=== PATIENT | male | born 1940 | race Caucasian/White ===

== ENCOUNTER 2018-09-17 17:32 | Emergency (ER) | payer MEDICARE, BC ==
[2018-09-17 17:48] VITALS: BP 173/82
--- NOTE | 2018-09-17 18:19 | EDM.PDOC ---
ED HPI GENERAL MEDICAL PROBLEM - General Chief Complaint: Cardiovascular Problem Stated Complaint: FORGET TO TAKE MEDICATION (BP HIGH) Time Seen by Provider: 09/17/18 17:49 Source of Information: Reports: Patient, RN Notes Reviewed - History of Present Illness INITIAL COMMENTS - FREE TEXT/NARRATIVE: 77 year old male with high blood pressure at home, forgot to take a medication last evening a day ago. Was feeling mildly abnormal a short time ago, checked his BP at home, was, 206 systolic. Now that he is here BP is only very mildly elevated, has not unusal sx at this time. No prior hx of Htn, has never taken medication for Htn. He had rotator cuff surgery about 4 to 5 days ago. Taking pain medication, doing OK with that. - Related Data Allergies Allergy/AdvReac Type Severity Reaction Status Date / Time Penicillins Allergy Severe Rash Verified 09/17/18 17:48 Home Meds: Home Meds Acetaminophen/oxyCODONE [Percocet 325-5 MG] 1 - 2 tab PO Q4H PRN #20 tab [Rx] Past Medical History Cardiovascular History: Reports: High Cholesterol, Hypertension, [place], PTCA Genitourinary History: Reports: BPH - Past Surgical History Musculoskeletal Surgical History: Reports: Hip Replacement, Knee Replacement Social & Family History - Caffeine Use Caffeine Use: Reports: None ED ROS GENERAL - Review of Systems Review Of Systems: See Below Constitutional: Denies: Fever, Chills, Diaphoresis HEENT: Denies: Throat Pain, Vertigo, Vision Change Respiratory: Denies: Shortness of Breath Cardiovascular: Denies: Chest Pain GI/Abdominal: Denies: Abdominal Pain, Nausea, Vomiting Musculoskeletal: Denies: Neck Pain, Shoulder Pain, Arm Pain, Back Pain Skin: Reports: No Symptoms Neurological: Denies: Dizziness, Headache, Numbness, Tingling, Trouble Speaking , Difficulty Walking, Weakness ED EXAM, GENERAL - Physical Exam Exam: See Below General Appearance: Alert, No Apparent Distress Eye Exam: Bilateral Eye: PERRL Throat/Mouth: Normal Inspection Head: Atraumatic. No: Facial Swelling Neck: Supple, Full Range of Motion Respiratory/Chest: No Respiratory Distress, Lungs Clear, Normal Breath Sounds Cardiovascular: Regular Rate, Rhythm GI/Abdominal: Soft, Non-Tender Extremities: Other (R shoulder in a sling, incission appear to be healing fine) . No: Pedal Edema, Leg Pain Neurological: Alert, Oriented, No Motor/Sensory Deficits Skin Exam: Warm, Dry, Normal Color Course - Vital Signs Last Recorded V/S: Last Vital Signs Temp 97.3 F 09/17/18 17:44 Pulse 56 L 09/17/18 17:44 Resp 16 09/17/18 17:44 BP 173/82 H 09/17/18 17:44 Pulse Ox 96 09/17/18 17:44 Departure - Departure Time of Disposition: 18:19 Disposition: Home, Self-Care 01 Condition: Fair Clinical Impression: Hypertension Qualifiers: Hypertension type: essential hypertension Qualified Code(s): I10 - Essential ( primary) hypertension Instructions: Hypertension Referrals: Manpreet Murray MD [Primary Care Provider] - Forms: ED Department Discharge Additional Instructions: your blood pressures here in the ED are safe, call or return to ED if you have more than one reading 20 minutes apart greater than 210/120. Call as needed for any other questions or concerns. Continue to check blood pressures once or twice daily and keep a record of those readings. Follow up clinic in about 6 to 7 days for recheck. Bring log of BP reading with you to clinic.
== END 2018-09-17 18:40 | disposition home or self-care (01) ==
LOC: JD.ED 17:32
DX: I10 Essential (primary) hypertension (principal); Z88.0 Allergy status to penicillin
CPT/HCPCS: 99282; 99283

== ENCOUNTER 2019-12-21 07:04 | Emergency (ER) | payer MEDICARE, BC ==
[2019-12-21 07:16] VITALS: BP 160/69; PULSE 75
--- NOTE | 2019-12-21 07:37 | EDM.PDOC ---
ED HPI GENERAL MEDICAL PROBLEM - General Chief Complaint: Abdominal Pain Stated Complaint: STOMACH PAIN Time Seen by Provider: 12/21/19 07:37 Source of Information: Reports: Patient History Limitations: Reports: No Limitations - History of Present Illness INITIAL COMMENTS - FREE TEXT/NARRATIVE: 79-year-old male presents to the ED for evaluation of abdominal pain. He states he has been up since 0130 hrs. this morning with diffuse periumbilical upper abdominal pain. Describes it as a deep aching pain with intermittent colicky component. States he has been having some loose stools. He has been having problems with abdominal pain for about 6 weeks. He did see week and had an ultrasound of his gallbladder liver and a CT of the abdomen and other blood tests as well as stools for culture and sensitivity. The results are not known to him as he has an appointment for follow-up tomorrow. States the pain got much worse overnight than its in the past. No associated nausea or vomiting. He has not been eating as much as of late as he has a sense of early satiety. Believes he probably losing a little bit of weight but some of this is intentional. He is not noticed any blood in the stool. And it tends to be loose and slightly yellow in color. Pain does not radiate through to the back. Patient has no history of abdominal surgery. Onset: Today Onset Date: 12/21/19 Onset Time: 01:30 Duration: Hour(s): (Recurrent abdominal pain off and on for the last 6 weeks however.), Constant Location: Reports: Abdomen (Periumbilical and upper abdominal pain) Quality: Reports: Ache, Sharp, Stabbing, Other Severity: Moderate (Colicky component to the pain 6 out of 10) Improves with: Reports: None Worsens with: Reports: None Context: Denies: Activity, Exercise, Lifting, Sick Contact, Trauma, Other Associated Symptoms: Reports: Loss of Appetite, Malaise, Other. Denies: No Other Symptoms, Confusion, Chest Pain, Cough, cough w sputum, Diaphoresis, Fever /Chills, Headaches, Nausea/Vomiting, Rash, Seizure, Shortness of Breath, Syncope Treatments ACCOUNT SUPPORT REP: Reports: Other (see below) (Does not take anything for the pain. ) Abdomen Pain Score (Numeric/FACES): 6 - Related Data Allergies Allergy/AdvReac Type Severity Reaction Status Date / Time Penicillins Allergy Severe Rash Verified 12/21/19 07:16 Home Meds: Home Meds Acetaminophen [Tylenol] 650 mg PO DAILY 12/21/19 [History] [facility]. 1 tab PO DAILY 12/21/19 [History] Isosorbide Mononitrate [Imdur] 15 mg PO DAILY 12/21/19 [History] Levothyroxine 0.5 tab PO DAILY 12/21/19 [History] Metoprolol Succinate 0.5 tab PO DAILY 12/21/19 [History] Rivaroxaban [Xarelto] 20 mg PO DAILY 12/21/19 [History] Rosuvastatin [Crestor] 40 mg PO BEDTIME 12/21/19 [History] Ubidecarenone [Co Q-10] 400 mg PO DAILY 12/21/19 [History] Past Medical History HEENT History: Reports: Impaired Vision Cardiovascular History: Reports: High Cholesterol, Hypertension, [place] (When he 16. ), PTCA, Stents (Had 1 stent placed in about 2013.) Genitourinary History: Reports: BPH Endocrine/Metabolic History: Reports: Hypothyroidism Dermatologic History: Reports: Benign Melanoma - Past Surgical History Male Surgical History: Reports: Other (See Below) Other Male Surgeries/Procedures: "resume treatment" Musculoskeletal Surgical History: Reports: Hip Replacement, Knee Replacement, Other (See Below) Other Musculoskeletal Surgeries/Procedures:: rotator cuff surgery x2 Social & Family History - Tobacco Use Smoking Status *Q: Never Smoker Second Hand Smoke Exposure: No - Caffeine Use Caffeine Use: Reports: Coffee - Recreational Drug Use Recreational Drug Use: No - Living Situation & Occupation Living situation: Reports: Occupation: Retired [employer] GENERAL - Review of Systems Review Of Systems: See Below Constitutional: Reports: Malaise, Weakness, Fatigue, Decreased Appetite (Early satiety), Weight Loss. Denies: Fever, Chills HEENT: Reports: No Symptoms Respiratory: Reports: Shortness of Breath. Denies: Wheezing, Pleuritic Chest Pain, Cough, Sputum Cardiovascular: Reports: Blood Pressure Problem. Denies: Chest Pain, Claudication, Dyspnea on Exertion, Edema, Lightheadedness, Orthopnea GI/Abdominal: Reports: Abdominal Pain (See history of present illness), Diarrhea. Denies: Distension, Hematemesis (Patient will loose yellow stools without blood), Hematochezia, Nausea, Vomiting : Reports: Frequency, Other (Sure you almost every hour.) Musculoskeletal: Reports: No Symptoms Skin: Reports: No Symptoms Neurological: Reports: No Symptoms Psychiatric: Reports: No Symptoms Hematologic/Lymphatic: Reports: No Symptoms Immunologic: Reports: No Symptoms ED EXAM, GI/ABD - Physical Exam Exam: See Below Exam Limited By: No Limitations General Appearance: Alert, WD/WN, Mild Distress, Other (Temperature is 36.2 with a pulse of 75. BP 160/69. Respiratory 16 with O2 sats of 96% on room air) Eyes: Bilateral: Normal Appearance Throat/Mouth: Normal Inspection, Normal Lips, Normal Teeth, Normal Oropharynx Head: Atraumatic, Normocephalic Neck: Normal Inspection, Supple, Non-Tender, Full Range of Motion. No: Carotid Bruit, Lymphadenopathy (L), Lymphadenopathy (R) Respiratory/Chest: No Respiratory Distress, Lungs Clear, Normal Breath Sounds, No Accessory Muscle Use, Chest Non-Tender Cardiovascular: Normal Peripheral Pulses, Regular Rate, Rhythm, No Edema, No Gallop, No Rub, Systolic Murmur (Pansystolic ejection murmur heard best at the left lower sternal border graded 1 out of 6.) GI/Abdominal Exam: Soft, Distended (Sounds are actually fairly quiesced sent in all 4 quadrants. Distended throughout all 4 quadrants and slight Lemuel tympanitic to percussion.), Tender (Tenderness along the costal margin and I can feel the edge of his liver 1 fingerbreadth below the costal margin with deep breathing.), Abnormal Bowel Sounds, Other. No: Guarding, Rigid, Rebound, Splenomegaly (Male) Exam: No Hernia (No umbilical hernia appreciated. No inguinal hernia. ) Back Exam: Normal Inspection, Full Range of Motion. No: CVA Tenderness (L), CVA Tenderness (R) Extremities: Normal Inspection, Normal Range of Motion, Non-Tender Neurological: Alert, Oriented, CN II-XII Intact, Normal Cognition Psychiatric: Anxious Skin Exam: Warm, Dry, Intact, Normal Color, No Rash Course - Vital Signs Last Recorded V/S: Last Vital Signs Temp 36.2 C 12/21/19 07:12 Pulse 75 12/21/19 07:12 Resp 16 12/21/19 07:12 BP 160/69 H 12/21/19 07:12 Pulse Ox 96 12/21/19 07:12 - Orders/Labs/Meds Orders: Active Orders 24 hr Category Date Time Status Bladder Scan [RC] ASDIRECTED Care 12/21/19 07:52 Active URINALYSIS W/MICROSCOPIC [UA W/MICROSCOPIC] [URIN] Stat Lab 12/21/19 07:46 Ordered Dextrose 5%-0.9% NaCl [Dextrose 5%-Normal Saline] 1,000 Med 12/21/19 07:45 Active ml IV ASDIRECTED Medication Orders Dextrose/Sodium Chloride (Dextrose 5%-Normal Saline) 1,000 mls @ 250 mls/hr IV ASDIRECTED GARCÍA Last Admin: 12/21/19 08:08 Dose: 250 mls/hr Labs: Laboratory Tests 12/21/19 12/21/19 Range/Units 08:00 08:00 WBC 10.05 H (4.23-9.07) K/mm3 RBC 4.97 (4.63-6.08) M/mm3 Hgb 14.6 (13.7-17.5) gm/dl Hct 45.3 (40.1-51.0) % MCV 91.1 (79.0-92.2) fl MCH 29.4 (25.7-32.2) pg MCHC 32.2 (32.2-35.5) g/dl RDW Std Deviation 46.7 H (35.1-43.9) fL Plt Count 167 (163-337) K/mm3 MPV 11.4 (9.4-12.3) fl Neut % (Auto) 84.6 H (34.0-67.9) % Lymph % (Auto) 6.5 L (21.8-53.1) % Storey % (Auto) 8.4 (5.3-12.2) % Eos % (Auto) 0.2 L (0.8-7.0) Baso % (Auto) 0.1 (0.1-1.2) % Neut # (Auto) 8.51 H (1.78-5.38) K/mm3 Lymph # (Auto) 0.65 L (1.32-3.57) K/mm3 Storey # (Auto) 0.84 H (0.30-0.82) K/mm3 Eos # (Auto) 0.02 L (0.04-0.54) K/mm3 Baso # (Auto) 0.01 (0.01-0.08) K/mm3 Manual Slide Review Abnormal smear Sodium 140 (136-145) mEq/L Potassium 3.6 (3.5-5.1) mEq/L Chloride 106 (98-107) mEq/L Carbon Dioxide 25 (21-32) mEq/L Anion Gap 12.6 (5-15) BUN 17 (7-18) mg/dL Creatinine 0.8 (0.7-1.3) mg/dL Est Cr Clr Drug Dosing 79.84 mL/min Estimated GFR (MDRD) > 60 (>60) mL/min BUN/Creatinine Ratio 21.3 H (14-18) Glucose 126 H (83-115) mg/dL Calcium 9.4 (8.5-10.1) mg/dL Magnesium 1.7 L (1.8-2.4) mg/dl Total Bilirubin 1.4 H (0.2-1.0) mg/dL GGT 744 H (15-85) U/L AST 214 H (15-37) U/L ALT 167 H (16-63) U/L Alkaline Phosphatase 303 H (46-116) U/L C-Reactive Protein 10.1 H* (<1.0) mg/dL Total Protein 6.4 (6.4-8.2) g/dl Albumin 2.8 L (3.4-5.0) g/dl Globulin 3.6 gm/dL Albumin/Globulin Ratio 0.8 L (1-2) Lipase 80 (73-393) U/L Meds: Medications Generic Name Dose Route Start Last Admin Trade Name Freq PRN Reason Stop Dose Admin Dextrose/Sodium Chloride 1,000 mls @ 250 mls/hr 12/21/19 07:45 12/21/19 08:08 Dextrose 5%-Normal Saline IV 250 mls/hr ASDIRECTED GARCÍA Administration Discontinued Medications Generic Name Dose Route Start Last Admin Trade Name Freq PRN Reason Stop Dose Admin Hydromorphone HCl 0.5 mg 12/21/19 07:45 12/21/19 08:11 Dilaudid IVPUSH 12/21/19 07:46 0.5 mg ONETIME ONE Administration Metoclopramide HCl 7.5 mg 12/21/19 07:45 12/21/19 08:11 Reglan IVPUSH 12/21/19 07:46 7.5 mg ONETIME ONE Administration - Radiology Interpretation Free Text/Narrative:: 79-year-old male presents to the ED for evaluation of diffuse periumbilical upper abdominal pain persistent since 0130 hrs. this morning. He since been experiencing intermittent abdominal pain for the last 6 weeks and did have investigations carried out last week with ultrasound of his gallbladder and liver and a CT of the abdomen as well as a stool for culture and sensitivity and lab work. He is to follow-up with clinic tomorrow for the results. Pain is listed as 5-6 out of 10. On examination vital signs are normal. Chest is clear bowel sounds are few and far between. Mildly diffuse Lemuel tympanitic to percussion. Slight tenderness along the right costal margin without a positive Cardona sign. Slight tenderness in the epigastrium. He does not drink alcohol. No abdominal hernias appreciated. Plan KUB to be done. Routine lab work. IV D5 normal saline at 250 mils per hour. Given Dilaudid 0.5 mg IV with Reglan 7.5 mg IV for pain and nausea relief. Will have a bladder scan done after he voids as he claims he has nocturia almost hourly during the night due to BPH. Medically I did not feel that I could palpate a urinary bladder. - Re-Assessments/Exams Free Text/Narrative Re-Assessment/Exam: 12/21/19 08:25 KUB has been performed. Clinically does not appear to have some hepatomegaly on KUB. There are scattered pockets of air throughout the small bowel and large bowel. No signs of bowel obstruction. No air-fluid levels. The slightly prominent loops of small bowel may represent a mild ileus. No increased stool in the colon either. 12/21/19 08:57 Chemistry shows a sodium of 140 potassium 3.6. Chloride 106 with a bicarb of 25. Anion gap is 12.6. BUN is 17 with a creatinine of 0.8. GFR is greater than 60. Glucose is 126 with a calcium of 9.4. Magnesium slightly low at 1.7. Total bilirubin is mildly elevated at 1.4. GGT is 744 with a AST of 214. ALT is 167 and alk phos days is 303. RP is 10.1. Total protein is 6.4 with an albumin fraction of 2.8 globulin is 3.6. Lipase is 80. Labs definitely suggest that there is a problem with mild biliary tree obstruction with an elevated GGT and slightly elevated bilirubin and alk phosphatase. He has had a recent CT of the abdomen and percent of his liver within the last week but I am not privy to these results as they were done through the [facility] system. I discussed the findings with the patient and he does appear to have a component of biliary tree obstruction either from stone, sludge, obstruction from pancreatic head. His appointment is with 0800 hrs. tomorrow morning. His pain is much improved with the IV Dilaudid given in the ED. He has tramadol tablets at home that he took after prostate surgery which work well for him. Advised to use these for pain management until he can follow-up with Dr.Rathgaber painter. Depending on the findings of the CT and the liver ultrasound he may will need MR i.e. ERCP or follow-up with gastroenterology for ERCP to establish what is causing obstruction of his biliary tree. Departure - Departure Time of Disposition: 09:13 Disposition: Home, Self-Care 01 Condition: Fair Clinical Impression: Abdominal pain Qualifiers: Abdominal location: right upper quadrant Qualified Code(s): R10.11 - Right upper quadrant pain - Discharge Information *PRESCRIPTION DRUG MONITORING PROGRAM REVIEWED*: Not Applicable *COPY OF PRESCRIPTION DRUG MONITORING REPORT IN PATIENT TERRENCE: Not Applicable Instructions: Abdominal Pain, Adult Referrals: Manpreet Murray MD [Primary Care Provider] - Forms: ED Department Discharge Additional Instructions: Evaluation in the emergency room today in regards to diffuse upper abdominal pain that became quite severe around 0130 hrs. this morning. As you indicates she been battling with this discomfort quite badly for the last 10 days. As you think back it started to feel more distended and gaseous around October 04. Lab tests done today do reveal some degree of biliary tree obstruction. This means that the common bile duct that drains the liver and the gallbladder is showing some signs of enzyme ovation in your blood indicating something is obstructing the biliary tree. This can be stones this can be sludge or sometimes it can be obstruction from the pancreatic head. This needs to be sorted out and you have had recent investigations within the last week that may well show the problem. At this time no further investigations will be entertained. Suggest using your tramadol tablets that you have at home 1 or 2 every 6 hours as necessary for pain relief. Follow-up with tomorrow a.m. as planned to help sort out what is causing the biliary tree obstruction. Sepsis Event Note - Evaluation Sepsis Screening Result: No Definite Risk - Focused Exam Vital Signs: Vital Signs Temp Pulse Resp BP Pulse Ox 12/21/19 07:12 36.2 C 75 16 160/69 H 96 Date Exam was Performed: 12/21/19 Time Exam was Performed: 08:55 - My Orders Last 24 Hours: My Active Orders 12/21/19 07:45 Dextrose 5%-0.9% NaCl [Dextrose 5%-Normal Saline] 1,000 ml IV ASDIRECTED 12/21/19 07:46 URINALYSIS W/MICROSCOPIC [UA W/MICROSCOPIC] [URIN] Stat 12/21/19 07:52 Bladder Scan [RC] ASDIRECTED - Assessment/Plan Last 24 Hours: My Active Orders 12/21/19 07:45 Dextrose 5%-0.9% NaCl [Dextrose 5%-Normal Saline] 1,000 ml IV ASDIRECTED 12/21/19 07:46 URINALYSIS W/MICROSCOPIC [UA W/MICROSCOPIC] [URIN] Stat 12/21/19 07:52 Bladder Scan [RC] ASDIRECTED
[2019-12-21] MEDS ORDERED: HYDROmorphone 0.5 MG/0.5 ML Syringe IVPUSH ONE (07:45)
[2019-12-21] MEDS ORDERED: Dextrose 5%-0.9% NaCl 1,000 ML IV SCH (07:45)
[2019-12-21] MEDS ORDERED: Metoclopramide 10 MG/2 ML SDV IVPUSH ONE (07:45)
--- NOTE | 2019-12-21 08:53 | CR ---
Abdomen: Supine view of the abdomen was obtained. Several slightly prominent loops of small bowel are noted within the left upper abdomen. Colonic gas is noted which appears within normal limits. Bilateral hip prosthesis are noted. Scattered degenerative change and mild scoliosis is noted within the spine. Impression: 1. Several slightly prominent loops of small bowel. These findings may be within normal limits or represent a mild ileus. 2. Other findings believed to be incidental as described above. Diagnostic code #2 This report was dictated in MDT
== END 2019-12-21 09:30 | disposition home or self-care (01) ==
LOC: JD.ED 07:04
DX: R10.11 Right upper quadrant pain (principal); E78.00 Pure hypercholesterolemia, unspecified; I10 Essential (primary) hypertension; E03.9 Hypothyroidism, unspecified; Z79.899 Other long term (current) drug therapy; Z88.0 Allergy status to penicillin
CPT/HCPCS: 36415; 51798; 74018; 80053; 82977; 83690; 83735; 85025; 86140; 96361; 96374; 96375; 99284; J1170; J2765; J7042

== ENCOUNTER 2019-12-31 01:57 | Emergency (ER) | payer MEDICARE, BC ==
[2019-12-31 02:37] VITALS: BP 125/80; PULSE 67
--- NOTE | 2019-12-31 03:13 | EDM.PDOC ---
ED HPI GENERAL MEDICAL PROBLEM - General Chief Complaint: Abdominal Pain Stated Complaint: UNABLE TO URINATE OR DEFECATE Time Seen by Provider: 12/31/19 03:05 - History of Present Illness INITIAL COMMENTS - FREE TEXT/NARRATIVE: 79-year-old male presents the emergency room with difficulty defecating and voiding. The patient has not had a bowel movement in several days. He has not voided in several hours he is able to void every few hours but not the way he normally does. The last time he tried to have a BM just a few drops of liquid material came out. Patient has not had any pain but he has had some nausea. No fevers or chills he is tried multiple enemas mag citrate and stool softeners at home. Patient was recently diagnosed with thyroid and liver cancer this is in the process of being evaluated at this point. He has had lots of blood work and images done over the last week and a half or so. The patient denies any burning or frequency with urination. He has not had any recent fevers or chills. Upper Abdomen Pain Score (Numeric/FACES): 4 - Related Data Allergies Allergy/AdvReac Type Severity Reaction Status Date / Time Penicillins Allergy Severe Rash Verified 12/31/19 02:37 oxycodone Allergy Delusions Verified 12/31/19 02:37 bee stings Allergy Swelling Uncoded 12/31/19 02:37 Home Meds: Home Meds Acetaminophen [Tylenol] 650 mg PO DAILY 12/21/19 [History] [facility]. 1 tab PO DAILY 12/21/19 [History] Isosorbide Mononitrate [Imdur] 15 mg PO DAILY 12/21/19 [History] Levothyroxine 0.5 tab PO DAILY 12/21/19 [History] Metoprolol Succinate 0.5 tab PO DAILY 12/21/19 [History] Rivaroxaban [Xarelto] 20 mg PO DAILY 12/21/19 [History] Rosuvastatin [Crestor] 40 mg PO BEDTIME 12/21/19 [History] Ubidecarenone [Co Q-10] 400 mg PO DAILY 12/21/19 [History] Hydrocodone/Acetaminophen [Hydrocodone-Acetamin 5-325 mg] 1 tab PO Q4H PRN 12/30 [History] Lactulose 20 gm PO DAILY #2 bottle 12/31/19 [Rx] Past Medical History HEENT History: Reports: Impaired Vision Cardiovascular History: Reports: High Cholesterol, Hypertension, ME, PTCA, Stents Gastrointestinal History: Reports: Other (See Below) Other Gastrointestinal History: recently diagnoses with esophogeal and liver cancer Genitourinary History: Reports: BPH Endocrine/Metabolic History: Reports: Hypothyroidism Dermatologic History: Reports: Benign Melanoma - Past Surgical History Male Surgical History: Reports: Other (See Below) Other Male Surgeries/Procedures: "resume treatment" Musculoskeletal Surgical History: Reports: Hip Replacement, Knee Replacement, Other (See Below) Other Musculoskeletal Surgeries/Procedures:: rotator cuff surgery x2 Social & Family History - Family History Family Medical History: Noncontributory - Tobacco Use Smoking Status *Q: Never Smoker Second Hand Smoke Exposure: No - Caffeine Use Caffeine Use: Reports: Coffee - Recreational Drug Use Recreational Drug Use: No - Living Situation & Occupation Living situation: Reports: Occupation: Retired ED ROS GENERAL - Review of Systems Review Of Systems: See Below Constitutional: Reports: No Symptoms HEENT: Reports: Vertigo. Denies: Dental Pain, Ear Pain, Nosebleed, Rhinitis, Sinus Problem, Throat Pain, Vision Change Respiratory: Reports: No Symptoms Cardiovascular: Reports: No Symptoms GI/Abdominal: Reports: Abdominal Pain, Constipation, Distension, Nausea. Denies : Vomiting Musculoskeletal: Reports: No Symptoms Skin: Reports: No Symptoms Neurological: Reports: No Symptoms Psychiatric: Reports: No Symptoms ED EXAM, GI/ABD - Physical Exam Exam: See Below Exam Limited By: No Limitations General Appearance: Alert, No Apparent Distress Head: Atraumatic, Normocephalic Respiratory/Chest: No Respiratory Distress, Lungs Clear, Normal Breath Sounds Cardiovascular: Regular Rate, Rhythm, No Edema, No Murmur GI/Abdominal Exam: Normal Bowel Sounds, Soft, Other (Uncomfortable with palpation no localizing symptoms no rigidity rebound or guarding noted) Rectal (Males) Exam: Other (Stool is of normal color large amount of stool noted in the rectum this is not overly hard.) Back Exam: Normal Inspection. No: CVA Tenderness (L), CVA Tenderness (R) Extremities: Normal Inspection, No Pedal Edema Neurological: Alert, Oriented, Normal Cognition Course - Vital Signs Last Recorded V/S: Last Vital Signs Temp 35.8 C L 12/31/19 02:32 Pulse 67 12/31/19 02:32 Resp 22 H 12/31/19 02:32 BP 125/80 12/31/19 02:32 Pulse Ox 92 L 12/31/19 02:32 - Orders/Labs/Meds Orders: Active Orders 24 hr Category Date Time Status Enema [RC] ASDIRECTED Care 12/31/19 04:26 Active Labs: Laboratory Tests 12/31/19 12/31/19 12/31/19 Range/Units 06:36 06:36 06:36 WBC 15.82 H (4.23-9.07) K/mm3 RBC 5.36 (4.63-6.08) M/mm3 Hgb 15.7 (13.7-17.5) gm/dl Hct 48.9 (40.1-51.0) % MCV 91.2 (79.0-92.2) fl MCH 29.3 (25.7-32.2) pg MCHC 32.1 L (32.2-35.5) g/dl RDW Std Deviation 48.6 H (35.1-43.9) fL Plt Count 350 H D (163-337) K/mm3 MPV 10.9 (9.4-12.3) fl Neut % (Auto) 83.3 H (34.0-67.9) % Lymph % (Auto) 8.8 L (21.8-53.1) % [place] % (Auto) 7.1 (5.3-12.2) % Eos % (Auto) 0.1 L (0.8-7.0) Baso % (Auto) 0.1 (0.1-1.2) % Neut # (Auto) 13.19 H (1.78-5.38) K/mm3 Lymph # (Auto) 1.39 (1.32-3.57) K/mm3 [place] # (Auto) 1.12 H (0.30-0.82) K/mm3 Eos # (Auto) 0.01 L (0.04-0.54) K/mm3 Baso # (Auto) 0.02 (0.01-0.08) K/mm3 Manual Slide Review Abnormal smear Sodium 140 (136-145) mEq/L Potassium 4.7 (3.5-5.1) mEq/L Chloride 104 (98-107) mEq/L Carbon Dioxide 26 (21-32) mEq/L Anion Gap 14.7 (5-15) BUN 27 H (7-18) mg/dL Creatinine 1.2 (0.7-1.3) mg/dL Est Cr Clr Drug Dosing 53.23 mL/min Estimated GFR (MDRD) 59 (>60) mL/min BUN/Creatinine Ratio 22.5 H (14-18) Glucose 129 H (83-115) mg/dL Calcium 12.3 H D (8.5-10.1) mg/dL Total Bilirubin 1.3 H (0.2-1.0) mg/dL AST 294 H (15-37) U/L ALT 149 H (16-63) U/L Alkaline Phosphatase 546 H (46-116) U/L Total Protein 7.0 (6.4-8.2) g/dl Albumin 2.7 L (3.4-5.0) g/dl Globulin 4.3 gm/dL Albumin/Globulin Ratio 0.6 L (1-2) Lipase 296 (73-393) U/L Meds: Medications Discontinued Medications Generic Name Dose Route Start Last Admin Trade Name Freq PRN Reason Stop Dose Admin Diatrizoate Meglum/Diatrizoate Sod 90 ml 12/31/19 07:25 12/31/19 08:00 Gastrografin 37% PO 12/31/19 07:26 90 ml ONETIME ONE Administration Iopamidol 100 ml 12/31/19 07:25 12/31/19 08:00 Isovue-300 (61%) IVPUSH 12/31/19 07:26 100 ml ONETIME ONE Administration Sodium Chloride 20 ml 12/31/19 07:49 Normal Saline FLUSH 12/31/19 07:50 ONETIME ONE - Re-Assessments/Exams Free Text/Narrative Re-Assessment/Exam: 12/31/19 05:57 Patient has had multiple labs and imaging studies done recently last abdominal CT was less than 2 weeks ago he is really reluctant to getting more labs and imaging done at this point, he had laboratory evaluation done here in this department on the 17 of this month which is concerning for transaminase elevation and evidence of advancing liver disease consistent with his liver cancer. However, I did get plain films of the abdomen which considerable accumulation of stool in the left colon and in the rectum. I did discuss mag citrate with the patient but he tried this before coming in and it took him all afternoon to drink a bottle of mag citrate. We are working with enemas at this point. The patient a little over a year ago had prostate surgery and has had really no difficulty voiding since then his bladder scan was just over 300 cc I am a little reluctant to put a catheter in him at this point until we know that is absolutely necessary and would like to get his stool pattern cleared up first. 12/31/19 06:25 The patient held the enema in for about 25 minutes and we only got a small amount of stool out. Had a conversation with the patient and he is now consenting to blood work and will go ahead and check an abdominal pelvic CT. 12/31/19 08:38 Patient has had a couple of smaller BMs after his CT with oral contrast. He is feeling better at this point white count slightly elevated at 15,000 his labs 0.2 mild dehydration and some other nonspecific changes most likely related to the underlying malignancies. The patient would like to go home at this point which is reasonable I have encouraged him to push fluids. I will start him on lactulose 20 g daily at bedtime Departure - Departure Time of Disposition: 08:42 Disposition: Home, Self-Care 01 Clinical Impression: Constipation by delayed colonic transit Abdominal pain Qualifiers: Abdominal location: right upper quadrant Qualified Code(s): R10.11 - Right upper quadrant pain - Discharge Information Referrals: Manpreet Murray MD [Primary Care Provider] - Forms: ED Department Discharge Additional Instructions: Return to the emergency room with any questions problems or worsening symptoms. Follow-up with your other physicians as scheduled. You have been started on lactulose this is to help with constipation and to keep your intestines moving. Take 2 tablespoons at bedtime. Sepsis Event Note - Evaluation Sepsis Screening Result: No Definite Risk - Focused Exam Vital Signs: Vital Signs Temp Pulse Resp BP Pulse Ox 12/31/19 02:32 35.8 C L 67 22 H 125/80 92 L Date Exam was Performed: 12/31/19 Time Exam was Performed: 08:38 - My Orders Last 24 Hours: My Active Orders 12/31/19 04:26 Enema [RC] ASDIRECTED - Assessment/Plan Last 24 Hours: My Active Orders 12/31/19 04:26 Enema [RC] ASDIRECTED
--- NOTE | 2019-12-31 06:31 | CR ---
Abdomen: Supine and upright views of the abdomen was obtained. Comparison: Prior abdominal x-ray of 12/21/19. Bilateral hip prosthesis is seen. Degenerative change is noted within the spine. Small air-fluid levels are noted within nondilated bowel. These are felt to be incidental. No abnormal amounts of stool are seen. No free air is identified. Impression: 1. Findings as noted above. 2. Nothing acute is appreciated. Diagnostic code #2 This report was dictated in MDT
[2019-12-31] MEDS ORDERED: Iopamidol 612 MG/ML 100 ML Bottle IVPUSH ONE (07:25)
[2019-12-31] MEDS ORDERED: Diatrizoate Meglumine/Diatrizoate Sodium 37% 120 ML Bottle PO ONE (07:25)
[2019-12-31] MEDS ORDERED: Sodium Chloride 0.9% 20 ML SDV FLUSH ONE (07:49)
--- NOTE | 2019-12-31 08:35 | CT ---
CT abdomen and pelvis Technique: Multiple axial sections were obtained from above the dome of the diaphragm inferiorly through the pubic symphysis. Intravenous contrast was utilized. Oral contrast also given. Comparison: Prior abdominal x-ray performed earlier on the same day (3:15 AM). Findings: Numerous low density lesions are seen within the right and left lobes of the liver. Findings are highly suspicious for diffuse liver metastasis. Visualized lung bases shows mild atelectasis and probable scarring. Spleen appears within normal limits. Minimal hiatal hernia is noted. Adrenal glands show no nodule. Pancreas is within normal limits. Increased density seen within the gallbladder most likely representing small gallstones. Kidneys show contrast enhancement without hydronephrosis or mass. Aorta shows atherosclerotic calcification without aneurysm. No retroperitoneal adenopathy is seen. No mesenteric abnormalities are seen. Appendix is seen which is normal in size. Artifact is noted within the pelvis caused by bilateral hip prosthesis. No free fluid or inflammatory change is appreciated. Delayed images shows contrast within the distal right ureter. Bone window settings shows degenerative change within the spine. Spondylitic defects with minimal spondylolisthesis is noted at L4-5. No osteolytic or osteoblastic change is appreciated within the visualized osseous structures. Impression: 1. Numerous low density lesions within the right left lobes of the liver compatible with multiple intrahepatic metastasis. 2. Small partially calcified gallstones within the gallbladder. 3. Other findings as noted above. Nothing acute is otherwise seen. Diagnostic code #9 This report was dictated in MDT
== END 2019-12-31 10:05 | disposition home or self-care (01) ==
LOC: JD.ED 01:57
DX: K59.01 Slow transit constipation (principal); E78.00 Pure hypercholesterolemia, unspecified; I10 Essential (primary) hypertension; I25.2 Old myocardial infarction; E03.9 Hypothyroidism, unspecified; Z79.01 Long term (current) use of anticoagulants; Z79.899 Other long term (current) drug therapy; Z88.0 Allergy status to penicillin; Z88.5 Allergy status to narcotic agent; Z91.030 Bee allergy status
CPT/HCPCS: 36415; 74019; 74177; 80053; 83690; 85025; 99284; Q9963; Q9967; 99283